=== PATIENT | female | born 1995 | race African-American/Black ===

== ENCOUNTER 2018-10-24 17:22 | Emergency (ER) | payer SELFPAY ==
--- NOTE | 2018-10-24 17:25 | EDM.PDOC ---
ED HPI GENERAL MEDICAL PROBLEM - General Stated Complaint: ABNORMAL DISCHARGE, 12 WKS PREG Time Seen by Provider: 10/24/18 17:24 Source of Information: Reports: Patient History Limitations: Reports: No Limitations - History of Present Illness INITIAL COMMENTS - FREE TEXT/NARRATIVE: History of present illness: []Patient is at 12 weeks followed by Puja Pearson and having dark vaginal bloody discharge. Patient was working today when he began she did have the same discharge when she found out she is . Patient has had an ultrasound confirming IUP by her OB. Review of systems: As per history of present illness and below otherwise all systems reviewed and negative. Past medical history: As per history of present illness and as reviewed below otherwise noncontributory. Surgical history: As per history of present illness and as reviewed below otherwise noncontributory. Social history: No reported history of drug or alcohol abuse. Family history: As per history of present illness and as reviewed below otherwise noncontributory. Physical exam: General: Well developed, well nourished in NAD HEENT: Atraumatic, normocephalic, pupils reactive, negative for conjunctival pallor or scleral icterus, mucous membranes moist, throat clear, neck supple, nontender, trachea midline. Lungs: Clear to auscultation, breath sounds equal bilaterally, chest nontender. Heart: S1S2, regular, negative for clicks, rubs, or JVD. Abdomen: NABS, Soft, nondistended, nontender. Negative for masses or hepatosplenomegaly. Negative for costovertebral tenderness. Pelvis: Stable nontender. Genitourinary: Deferred. Rectal: Deferred. Extremities: Atraumatic, negative for cords or calf pain. Neurovascular unremarkable. Neuro: Awake, alert, oriented. Cranial nerves II through XII unremarkable. Cerebellum unremarkable. Motor and sensory unremarkable throughout. Exam nonfocal. Skin:warm and dry Diagnostics: CBC, Rh, UA, hCG Quant, pelvic ultrasound Therapeutics: Normal saline ED Course: Stable Impression: Subchorionic hemorrhage Prescriptions: none Plan: Follow-up with [facility] Definitive disposition and diagnosis as appropriate pending reevaluation and review of above. Upper Abdomen Pain Score (Numeric/FACES): 3 - Related Data Allergies Allergy/AdvReac Type Severity Reaction Status Date / Time No Known Allergies Allergy Verified 10/24/18 17:34 Home Meds: Home Meds PNV No.115/Iron Fumarate/FA [ 19 Chewable Tablet] 1 each PO DAILY [History] ED ROS GENERAL - Review of Systems Review Of Systems: ROS reveals no pertinent complaints other than HPI. ED EXAM - Physical Exam Exam: See Below Course - Vital Signs Last Recorded V/S: Last Vital Signs Temp 97.6 F 10/24/18 17:30 Pulse 100 10/24/18 17:30 Resp BP 116/71 10/24/18 17:30 Pulse Ox 100 10/24/18 17:30 - Orders/Labs/Meds Orders: Active Orders 24 hr Category Date Time Status OB 1st Tri Sgl 1st Gest [US] Stat Exams 10/24/18 17:30 Taken HCG QUANTITATIVE [CHEM] Stat Lab 10/24/18 17:55 Received Sodium Chloride 0.9% [Saline Flush] Med 10/24/18 17:29 Active 10 ml FLUSH ASDIRECTED PRN Sodium Chloride 0.9% [Saline Flush] Med 10/24/18 17:29 Active 2.5 ml FLUSH ASDIRECTED PRN Saline Lock Insert [OM.PC] Stat Oth 10/24/18 17:28 Ordered Medication Orders Sodium Chloride (Saline Flush) 10 ml FLUSH ASDIRECTED PRN PRN Reason: Keep Vein Open Sodium Chloride (Saline Flush) 2.5 ml FLUSH ASDIRECTED PRN PRN Reason: Keep Vein Open Labs: Laboratory Tests 10/24/18 10/24/18 10/24/18 Range/Units 17:38 17:55 17:55 WBC 9.78 (4.0-11.0) K/uL RBC 5.38 (4.30-5.90) M/uL Hgb 13.2 (12.0-16.0) g/dL Hct 40.3 (36.0-46.0) % MCV 74.9 L (80.0-98.0) fL MCH 24.5 L (27.0-32.0) pg MCHC 32.8 (31.0-37.0) g/dL RDW Std Deviation 42.7 (28.0-62.0) fl RDW Coeff of Nacho 16 H (11.0-15.0) % Plt Count 293 (150-400) K/uL MPV 9.60 (7.40-12.00) fL Neut % (Auto) 76.1 (48.0-80.0) % Lymph % (Auto) 15.7 L (16.0-40.0) % [place] % (Auto) 7.3 (0.0-15.0) % Eos % (Auto) 0.8 (0.0-7.0) % Baso % (Auto) 0.1 (0.0-1.5) % Neut # (Auto) 7.4 H (1.4-5.7) K/uL Lymph # (Auto) 1.5 (0.6-2.4) K/uL [place] # (Auto) 0.7 (0.0-0.8) K/uL Eos # (Auto) 0.1 (0.0-0.7) K/uL Baso # (Auto) 0.0 (0.0-0.1) K/uL Nucleated RBC % 0.0 /100WBC Nucleated RBCs # 0 K/uL Urine Color YELLOW Urine Appearance SLT CLOUDY Urine pH 5.5 (5.0-8.0) Ur Specific [place] >= 1.030 (1.001-1.035) Urine Protein NEGATIVE (NEGATIVE) mg/dL Urine Glucose (UA) NEGATIVE (NEGATIVE) mg/dL Urine Ketones TRACE H (NEGATIVE) mg/dL Urine Occult Blood TRACE-INTACT H (NEGATIVE) Urine Nitrite NEGATIVE (NEGATIVE) Urine Bilirubin NEGATIVE (NEGATIVE) Urine Urobilinogen 0.2 (<2.0) EU/dL Ur Leukocyte Esterase NEGATIVE (NEGATIVE) Urine RBC 0-5 (0-2/HPF) Urine WBC 0-4 (0-5/HPF) Ur Epithelial Cells FEW (NONE-FEW) Urine Bacteria FEW (NEGATIVE) Blood Type O POSITIVE Meds: Medications Generic Name Dose Route Start Last Admin Trade Name Freq PRN Reason Stop Dose Admin Sodium Chloride 10 ml 10/24/18 17:29 Saline Flush FLUSH ASDIRECTED PRN Keep Vein Open Sodium Chloride 2.5 ml 10/24/18 17:29 Saline Flush FLUSH ASDIRECTED PRN Keep Vein Open Departure - Departure Time of Disposition: 18:33 Disposition: Home, Self-Care 01 Condition: Good Clinical Impression: Threatened Subchorionic hemorrhage in first trimester Qualifiers: Fetus number: single or unspecified fetus Qualified Code(s): O41.8X10 - Other specified disorders of amniotic fluid and membranes, first trimester, not applicable or unspecified; O46.8X1 - Other antepartum hemorrhage, first trimester - Discharge Information *PRESCRIPTION DRUG MONITORING PROGRAM REVIEWED*: No *COPY OF PRESCRIPTION DRUG MONITORING REPORT IN PATIENT LAURA: No Referrals: Puja Pearson CNM [Primary Care Provider] - Additional Instructions: The following information is given to patients seen in the emergency department who are being discharged to home. This information is to outline your options for follow-up care. We provide all patients seen in our emergency department with a follow-up referral. The need for follow-up, as well as the timing and circumstances, are variable depending upon the specifics of your emergency department visit. If you don't have a primary care physician on staff, we will provide you with a referral. We always advise you to contact your personal physician following an emergency department visit to inform them of the circumstance of the visit and for follow-up with them and/or the need for any referrals to a consulting specialist. The emergency department will also refer you to a specialist when appropriate. This referral assures that you have the opportunity for follow-up care with a specialist. All of these measure are taken in an effort to provide you with optimal care, which includes your follow-up. Under all circumstances we always encourage you to contact your private physician who remains a resource for coordinating your care. When calling for follow-up care, please make the office aware that this follow-up is from your recent emergency room visit. If for any reason you are refused follow-up, please contact the [facility] Emergency Department at and asked to speak to the emergency department charge nurse. [facility] Primary Care - Women's Health [address] [place] [address] - My Orders Last 24 Hours: My Active Orders 10/24/18 17:28 Saline Lock Insert [OM.PC] Stat 10/24/18 17:29 Sodium Chloride 0.9% [Saline Flush] 10 ml FLUSH ASDIRECTED PRN Sodium Chloride 0.9% [Saline Flush] 2.5 ml FLUSH ASDIRECTED PRN 10/24/18 17:30 OB 1st Tri Sgl 1st Gest [US] Stat 10/24/18 17:55 HCG QUANTITATIVE [CHEM] Stat - Assessment/Plan Last 24 Hours: My Active Orders 10/24/18 17:28 Saline Lock Insert [OM.PC] Stat 10/24/18 17:29 Sodium Chloride 0.9% [Saline Flush] 10 ml FLUSH ASDIRECTED PRN Sodium Chloride 0.9% [Saline Flush] 2.5 ml FLUSH ASDIRECTED PRN 10/24/18 17:30 OB 1st Tri Sgl 1st Gest [US] Stat 10/24/18 17:55 HCG QUANTITATIVE [CHEM] Stat
[2018-10-24] MEDS ORDERED: Sodium Chloride 0.9% 2.5 ML Syringe FLUSH PRN (17:29)
[2018-10-24] MEDS ORDERED: Sodium Chloride 0.9% 10 ML Syringe FLUSH PRN (17:29)
--- NOTE | 2018-10-24 18:57 | US ---
INDICATION: Vaginal bleeding, spotting, TECHNIQUE: Ultrasound OB pelvis transvaginal. Real time odell scale imaging of the pelvis was performed. COMPARISON: None. FINDINGS: Sonographic imaging demonstrates a single living intrauterine gestation with a heartbeat measuring 164 beats per minute. The embryo`s crown rump length measures 4.85 cm, which corresponds to a gestational age of 11 weeks and 5 days with a sonographic due date of 05/10/2019. Yolk sac is visualized. There is a small subchorionic heterogeneous area measuring 2.2 x 0.7 x 2.8 cm which could represent a subchorionic hemorrhage. The right ovary measures 3.5 x 1.8 x 2.1 cm and the left ovary measures 3.0 x 1.1 x 2.6 cm. There is a right corpus luteum cyst. No adnexal masses visualized. No significant free fluid in the cul-de-sac. IMPRESSION: 1. Single living intrauterine gestation with an estimated gestational age of 11 weeks and 5 days and estimated due date of 05/10/2019. 2. Possible small subchorionic hemorrhage. Dictated by Addie Gorman MD @ 10/24/2018 6:54:28 PM Dictated by: Addie Gorman MD @ 10/24/2018 18:54:54 (Electronically Signed)
== END 2018-10-24 19:05 | disposition home or self-care (01) ==
LOC: MW.ED 17:22
DX: O20.0 Threatened abortion (principal); Z3A.12 12 weeks gestation of pregnancy
CPT/HCPCS: 76801; 76801-26; 81001; 84702; 85025; 86900; 86901; 99284-25